=== PATIENT | female | born 1945 | race Caucasian/White ===

== ENCOUNTER 2024-04-20 11:43 | Outpatient (AMB) | payer MEDICARE, OTHER, SELFPAY ==
--- NOTE | 2024-04-20 11:41 | HO.NEPHOV_ITS ---
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 She has no H/O liver failure, renal failure nor documented cardiomyopathy/ CHF though she has a remote H/O questionable CAD in the anteroseptal territory.. Records did not say she has any coronary findings in the angiogram. She is followed up by Dr Morse. She is due to get an ECHO soon. She has been having edema with SOBE but denies any PND or orthopnea. She is not strict with low sodium diet and her weight has been fluctuant. She has been having edema in the lower extremities, left more than right even when she wakes up in the morning. She was given thiazide diuretics for some time which has been discontinued in the context of ongoing low sodium. She denies any weakness or mentation changes. She also was on Amlodipine which has been dicontinued due to ongoing edema. She has no H/O any proteinuria. She has no H/O depression and is not on any anti depressant medications. She has seen [employer] for SOB and has been given a new inhaler( as per the patient). She used to drink excessive amount of fluid and has cut back, She consumes a normal sodium diet . She has remote H/O melanoma couple of years ago but denies any active malignancies. She takes multiple anti hypertensive medications and clonidine is causing her dry mouth forcing her to drink more liquid. Her BP has been well controlled. [facility], [facility] Medical History (Updated 04/20/24 @ 23:19 by David Ziegler MD) History of melanoma Anteroseptal myocardial infarction Left bundle branch block Osteoarthritis Hyperlipidemia Hypertension Hyponatremia Surgical History (Updated 04/20/24 @ 11:50 by Flores Choudhury MA) History of cataract surgery Hx of appendectomy Family History (Updated 04/20/24 @ 11:51 by Flores Choudhury MA) Father Heart disease Sister Heart disease Brother Heart disease Social History (Updated 04/20/24 @ 11:52 by Flores Choudhury MA) Alcohol intake: current Patient Tobacco Use Status: Former Tobacco user Review of Systems Const All systems reviewed & are unremarkable except as noted in HPI and below Physical Exam Vital Signs: Last Vital Signs Pulse 63 04/20/24 11:45 BP 144/68 H 04/20/24 11:45 Pulse Ox 97 04/20/24 11:45 Oxygen Delivery Method Room Air 04/20/24 11:45 BMI result Body Mass Index 26.9 Const General: comfortable and no acute distress Orientation/consciousness: patient oriented x3 HEENT Head: Yes normocephalic Mouth: Normal oral and palatal mucosa present Eyes EOM: EOMs intact bilaterally Neck Neck: Yes supple Resp Auscultation: clear to auscultation bilaterally Cardio Jugular venous distension: JVD Rate: regular rate GI Palpation (GI): Soft to palpation Auscultation: normal bowel sounds General: Yes no CVA tenderness Back/Spine/Pelvis Back: no CVA tenderness Skin General skin exam: no rashes or lesions noted Neuro General: patient oriented x3 and moves all extremities Extrem Other: Edema L > R Results Reviewed Nephrology Results: No Data to Display Assessment & Plan Assessment & Plan (1) Hyponatremia: Code(s): E87.1 - Hypo-osmolality and hyponatremia Category: Medical (2) Hypertension: Code(s): I10 - Essential (primary) hypertension Category: Medical Qualifiers: Hypertension type: primary hypertension Qualified Code(s): I10 - Essential (primary) hypertension Plan Hyponatremia likely mutlifactorial. Clearly hypervolemic by clinical examination. Was on thiazide as well as amlodipine. H/O CAD/melanoma. May be having cardiomyopathy given subjective weight fluctuation as well as SOB with edema and JVD. Detailed work up ordered. ECHO pending. Started diuretics as well as nitrates. Will do a CXR as well as CT brain later, if needed. Shall try to wean her off Clondine given side effects. Time spent retreiving all data, patient encounter, documentation 63mts. Follow up given in a week. Answered all questions Orders: Orders TSH reflex Free T4 Today E87.1 - Hypo-osmolality and hyponatremia Blood Urea Nitrogen Today E87.1 - Hypo-osmolality and hyponatremia Cortisol Random Today E87.1 - Hypo-osmolality and hyponatremia Osmolality Urine Today E87.1 - Hypo-osmolality and hyponatremia Osmolality, Serum Today E87.1 - Hypo-osmolality and hyponatremia Sodium Urine Random Today E87.1 - Hypo-osmolality and hyponatremia Creatinine Today E87.1 - Hypo-osmolality and hyponatremia Electrolytes Today E87.1 - Hypo-osmolality and hyponatremia Medications: New furosemide 40 mg PO DAILY 14 tabs 0RF isosorbide mononitrate ER 30 mg PO DAILY 30 tabs 2RF Coding Level of Care Code New Pt Level 5 (27075) Diagnoses Hyponatremia E87.1 Primary hypertension I10 Hypertension type: primary hypertension
[2024-04-20 11:45] VITALS: BP 144/68; PULSE 63; O2SAT 97; BMI 26.9
== END 2024-04-20 12:31 | disposition home or self-care (01) ==
PROVIDERS: PCP Internal Medicine; Referring Provider Internal Medicine; Visit Provider Internal Medicine Nephrology
DX: E87.1 Hypo-osmolality and hyponatremia (principal); I10 Essential (primary) hypertension
CPT/HCPCS: 99205

== ENCOUNTER → 2024-04-20 11:43 | Outpatient (BNVA) | payer MEDICARE, OTHER, SELFPAY | PROVIDERS: PCP Internal Medicine; Referring Provider Internal Medicine; Visit Provider Internal Medicine Nephrology | DX: E87.1 Hypo-osmolality and hyponatremia (principal); I10 Essential (primary) hypertension; Z79.899 Other long term (current) drug therapy | CPT/HCPCS: 99202 ==

== ENCOUNTER 2024-04-29 09:30 | Outpatient (REF) | payer MEDICARE, OTHER, SELFPAY ==
[2024-04-29 18:04] LABS: Anion Gap 12 (12-20); Blood Urea Nitrogen 18 mg/dL (9-16); Carbon Dioxide 27 mmol/L (22-29); Chloride 98 mmol/L (96-108); Estimated Glomerular Filt Rate > 60; Potassium 3.9 mmol/L (3.3-5.1); Sodium 133 mmol/L (135-145)
[2024-04-29 18:11] LABS: Osmolality, Serum 279 mosm/kg (281-305)
[2024-04-29 18:11] LABS: Osmolality Urine 141 mosm/kg (373-1093)
[2024-04-29 18:20] LABS: Cortisol Random 2.7 ug/dL
[2024-04-29 18:21] LABS: TSH reflex Free T4 0.41 uIU/mL (0.32-4.0)
== END 2024-04-29 09:31 | disposition home or self-care (01) ==
LOC: HO.HKASLDS 09:30
PROVIDERS: Visit Provider Internal Medicine Nephrology
DX: E87.1 Hypo-osmolality and hyponatremia (principal)
CPT/HCPCS: 36415; 80051; 82533; 82565; 83930; 83935; 84300; 84443; 84520

== ENCOUNTER 2024-04-30 09:50 | Outpatient (AMB) | payer MEDICARE, OTHER, SELFPAY ==
[2024-04-30 09:55] VITALS: BP 128/60; PULSE 59; O2SAT 98; BMI 26.0
--- NOTE | 2024-04-30 09:55 | HO.NEPHOV ---
Vital Signs 04/30/24 09:55 Height 5 ft 4 in Weight 151 lb 6 oz BMI 26.0 BP 128/60 Blood Pressure Location Lt brachial Position Sitting Pulse 59 Pulse Source Pulse Oximeter Pulse Oximetry (%) 98 Oxygen Delivery Method Room Air Intake Visit Reasons: 1 wk follow up/ LVM Food Runner Required: No Accompanied by: Self / Same As Patient Allergies azithromycin Allergy (Verified 04/30/24 09:57) Hives HPI Comments Details: I had the privilege of seeing Fatoumata in follow up for hyponatremia. 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 She has no H/O liver failure, renal failure nor documented cardiomyopathy/ CHF though she has a remote H/O questionable CAD in the anteroseptal territory.. Records did not say she has any coronary findings in the angiogram. She is followed up by Dr Morse. She is due to get an ECHO soon. She has been having edema with SOBE but denies any PND or orthopnea. She is not strict with low sodium diet and her weight has been fluctuant. She has been having edema in the lower extremities, left more than right even when she wakes up in the morning. She was given thiazide diuretics for some time which has been discontinued in the context of ongoing low sodium. She denies any weakness or mentation changes. She also was on Amlodipine which has been dicontinued due to ongoing edema. She has no H/O any proteinuria. She has no H/O depression and is not on any anti depressant medications. She has seen Asset Protection Specialist for SOB and has been given a new inhaler( as per the patient). She used to drink excessive amount of fluid and has cut back, She consumes a normal sodium diet . She has remote H/O melanoma couple of years ago but denies any active malignancies. She takes multiple anti hypertensive medications and clonidine is causing her dry mouth forcing her to drink more liquid. Her BP has been well controlled. She had ECHO and is seeing Dr Morse this coming Saturday. Her SOB is better and sodium is better as well. [facility] Medical History (Updated 04/20/24 @ 23:19 by David Ziegler MD) History of melanoma Anteroseptal myocardial infarction Left bundle branch block Osteoarthritis Hyperlipidemia Hypertension Hyponatremia Surgical History History of cataract surgery Hx of appendectomy Family History Father Heart disease Sister Heart disease Brother Heart disease Social History Alcohol intake: current Patient Tobacco Use Status: Former Tobacco user Review of Systems Const All systems reviewed & are unremarkable except as noted in HPI and below Physical Exam Vital Signs: Last Vital Signs Pulse 59 04/30/24 09:55 BP 128/60 04/30/24 09:55 Pulse Ox 98 04/30/24 09:55 Oxygen Delivery Method Room Air 04/30/24 09:55 BMI result Body Mass Index 26.0 Const General: comfortable and no acute distress Orientation/consciousness: patient oriented x3 HEENT Head: Yes normocephalic Mouth: Normal oral and palatal mucosa present Eyes EOM: EOMs intact bilaterally Neck Neck: Yes supple Resp Auscultation: clear to auscultation bilaterally Cardio Jugular venous distension: no JVD Rate: regular rate GI Palpation (GI): Soft to palpation Auscultation: normal bowel sounds General: Yes no CVA tenderness Back/Spine/Pelvis Back: no CVA tenderness Skin General skin exam: no rashes or lesions noted Neuro General: patient oriented x3 and moves all extremities Results Reviewed Nephrology Results: Sodium 133 mmol/L (135-145) L 04/29/24 Potassium 3.9 mmol/L (3.3-5.1) 04/29/24 Chloride 98 mmol/L (96-108) 04/29/24 Carbon Dioxide 27 mmol/L (22-29) 04/29/24 BUN 18 mg/dL (9-16) H 04/29/24 Creatinine 0.84 mg/dL (0.5-1.4) 04/29/24 Assessment & Plan Assessment & Plan (1) Hypertension: Code(s): I10 - Essential (primary) hypertension Category: Medical Qualifiers: Hypertension type: primary hypertension Qualified Code(s): I10 - Essential (primary) hypertension (2) Hyponatremia: Code(s): E87.1 - Hypo-osmolality and hyponatremia Category: Medical Plan Hyponatremia likely mutlifactorial. Clearly hypervolemic by clinical examination at the last visit . Her volume status has improved. Was on thiazide as well as amlodipine. H/O CAD/melanoma. (May be having cardiomyopathy given subjective weight fluctuation as well as SOB with edema and JVD)- Had ECHO. Cards appointment next week. C/W diuretics as well as nitrates- Na better on it. Shall try to wean her off Clondine given side effects. Follow up given . Answered all questions Orders: Orders Blood Urea Nitrogen 1 Month E87.1 - Hypo-osmolality and hyponatremia, I10 - Essential (primary) hypertension Creatinine 1 Month E87.1 - Hypo-osmolality and hyponatremia, I10 - Essential (primary) hypertension Electrolytes 1 Month E87.1 - Hypo-osmolality and hyponatremia, I10 - Essential (primary) hypertension Medications: Refilled furosemide 40 mg PO DAILY 30 tabs 3RF Coding Level of Care Code Est Pt Level 4 (31348) Diagnoses Primary hypertension I10 Hypertension type: primary hypertension Hyponatremia E87.1
== END 2024-04-30 10:48 | disposition home or self-care (01) ==
PROVIDERS: PCP Internal Medicine; Visit Provider Internal Medicine Nephrology
DX: I10 Essential (primary) hypertension (principal); E87.1 Hypo-osmolality and hyponatremia
CPT/HCPCS: 99214

== ENCOUNTER → 2024-04-30 09:50 | Outpatient (BNVA) | payer MEDICARE, OTHER, SELFPAY | PROVIDERS: PCP Internal Medicine; Visit Provider Internal Medicine Nephrology | DX: E87.1 Hypo-osmolality and hyponatremia (principal); I10 Essential (primary) hypertension | CPT/HCPCS: 99212 ==

== ENCOUNTER 2024-05-27 10:39 | Outpatient (REF) | payer MEDICARE, OTHER, SELFPAY ==
[2024-05-27 17:59] LABS: Anion Gap 7 (12-20); Blood Urea Nitrogen 13 mg/dL (9-16); Carbon Dioxide 32 mmol/L (22-29); Chloride 104 mmol/L (96-108); Estimated Glomerular Filt Rate 59; Potassium 3.9 mmol/L (3.3-5.1); Sodium 139 mmol/L (135-145)
== END 2024-05-27 10:40 | disposition home or self-care (01) ==
LOC: HO.HKASLDS 10:39
PROVIDERS: Visit Provider Internal Medicine Nephrology
DX: I10 Essential (primary) hypertension (principal); E87.1 Hypo-osmolality and hyponatremia
CPT/HCPCS: 36415; 80051; 82565; 84520

== ENCOUNTER 2024-05-28 15:14 | Outpatient (AMB) | payer MEDICARE, OTHER, SELFPAY ==
[2024-05-28 15:45] VITALS: BP 118/64; PULSE 60; O2SAT 96; BMI 26.0
--- NOTE | 2024-05-28 15:45 | HO.NEPHOV_ITS ---
Vital Signs 05/28/24 15:45 Height 5 ft 4 in Weight 151 lb 8 oz BMI 26.0 BP 118/64 Blood Pressure Location Lt brachial Position Sitting Pulse 60 Pulse Source Pulse Oximeter Pulse Oximetry (%) 96 Oxygen Delivery Method Room Air Intake Visit Reasons: 1 mon follow up- CON Manager Statistical Programming Required: No Accompanied by: Self / Same As Patient Allergies azithromycin Allergy (Verified 05/28/24 15:47) Hives HPI Comments Details: I had the privilege of seeing Fatoumata in follow up for hyponatremia. 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 She has no H/O liver failure, renal failure nor documented cardiomyopathy/ CHF though she has a remote H/O questionable CAD in the anteroseptal territory.. Records did not say she has any coronary findings in the angiogram. She is followed up by Dr Morse. She is due to get an ECHO soon. She has been having edema with SOBE but denies any PND or orthopnea. She is not strict with low sodium diet and her weight has been fluctuant. She has been having edema in the lower extremities, left more than right even when she wakes up in the morning. She was given thiazide diuretics for some time which has been discontinued in the context of ongoing low sodium. She denies any weakness or mentation changes. She also was on Amlodipine which has been dicontinued due to ongoing edema. She has no H/O any proteinuria. She has no H/O depression and is not on any anti depressant medications. She has seen Load Dispatcher Local for SOB and has been given a new inhaler( as per the patient). She used to drink excessive amount of fluid and has cut back, She consumes a normal sodium diet . She has remote H/O melanoma couple of years ago but denies any active malignancies. She takes multiple anti hypertensive medications and clonidine is causing her dry mouth forcing her to drink more liquid. Her BP has been well controlled. She had ECHO and is seeing Dr Morse this coming Saturday. Her SOB is better and sodium is better as well. [facility] Medical History (Updated 04/20/24 @ 23:19 by David Ziegler MD) History of melanoma Anteroseptal myocardial infarction Left bundle branch block Osteoarthritis Hyperlipidemia Hypertension Hyponatremia Surgical History History of cataract surgery Hx of appendectomy Family History Father Heart disease Sister Heart disease Brother Heart disease Social History Alcohol intake: current Patient Tobacco Use Status: Former Tobacco user Review of Systems Const All systems reviewed & are unremarkable except as noted in HPI and below Physical Exam Vital Signs: Last Vital Signs Pulse 60 05/28/24 15:45 BP 118/64 05/28/24 15:45 Pulse Ox 96 05/28/24 15:45 Oxygen Delivery Method Room Air 05/28/24 15:45 BMI result Body Mass Index 26.0 Const General: comfortable and no acute distress Orientation/consciousness: patient oriented x3 HEENT Head: Yes normocephalic Mouth: Normal oral and palatal mucosa present Eyes EOM: EOMs intact bilaterally Neck Neck: Yes supple Resp Auscultation: clear to auscultation bilaterally Cardio Jugular venous distension: no JVD Rate: regular rate GI Palpation (GI): Soft to palpation Auscultation: normal bowel sounds General: Yes no CVA tenderness Back/Spine/Pelvis Back: no CVA tenderness Skin General skin exam: no rashes or lesions noted Neuro General: patient oriented x3 and moves all extremities Extrem General: Yes no pedal edema Results Reviewed Nephrology Results: Sodium 139 mmol/L (135-145) 05/27/24 Potassium 3.9 mmol/L (3.3-5.1) 05/27/24 Chloride 104 mmol/L (96-108) 05/27/24 Carbon Dioxide 32 mmol/L (22-29) H 05/27/24 BUN 13 mg/dL (9-16) 05/27/24 Creatinine 0.92 mg/dL (0.5-1.4) 05/27/24 Assessment & Plan Assessment & Plan (1) Hyponatremia: Code(s): E87.1 - Hypo-osmolality and hyponatremia Category: Medical (2) Hypertension: Code(s): I10 - Essential (primary) hypertension Category: Medical Qualifiers: Hypertension type: primary hypertension Qualified Code(s): I10 - Essential (primary) hypertension Plan Hyponatremia likely mutlifactorial. Was hypervolemic by clinical examination at the last visits but euvolemic now . H/O CAD/melanoma. (May be having cardiomyopathy given subjective weight fluctuation as well as SOB with edema and JVD)- Had ECHO- OK. Will benefit from Sleep Study. C/W diuretics as well as nitrates. Shall try to wean her off Clondine given side effects. No changes made today. Follow up given . Answered all questions Orders: Orders Electrolytes Today E87.1 - Hypo-osmolality and hyponatremia, I10 - Essential (primary) hypertension Creatinine Today E87.1 - Hypo-osmolality and hyponatremia, I10 - Essential (primary) hypertension Blood Urea Nitrogen Today E87.1 - Hypo-osmolality and hyponatremia, I10 - Essential (primary) hypertension Coding Level of Care Code Est Pt Level 4 (19096) Diagnoses Hyponatremia E87.1 Primary hypertension I10 Hypertension type: primary hypertension
== END 2024-05-28 16:12 | disposition home or self-care (01) ==
PROVIDERS: PCP Internal Medicine; Visit Provider Internal Medicine Nephrology
DX: E87.1 Hypo-osmolality and hyponatremia (principal); I10 Essential (primary) hypertension
CPT/HCPCS: 99214

== ENCOUNTER → 2024-05-28 15:14 | Outpatient (BNVA) | payer MEDICARE, OTHER, SELFPAY | PROVIDERS: PCP Internal Medicine; Visit Provider Internal Medicine Nephrology | DX: E87.1 Hypo-osmolality and hyponatremia (principal); I10 Essential (primary) hypertension | CPT/HCPCS: 99212 ==

== ENCOUNTER 2024-11-25 10:00 | Outpatient (REF) | payer MEDICARE, OTHER, SELFPAY ==
--- OUTSIDE RECORDS SUMMARY | 2024-11-25 11:22 | XMS_ITS | Encounter Summary ---
Author Organization [facility] Address [address] [place] [address] Care Team Providers Care Obstetrician/Gynecologist Name Role Phone Gilmar Freeman MD Primary Care Provider + [phone] Reason for Referral * Therapy (Routine) - Closed Specialty Diagnoses / Procedures Referred By Contac t Referred To Contact Pulmonology Diagnoses COPD (chronic obstructive pulmonary disease) ([facility]) Procedures Pulmonary function testing: Carbon Monoxide Diffusing Capacity, Nitrogen Wash Out, Spirometry with Bronchodilator Elis Forbes MD [address] [place] [id number] Phone: tel: fax: [facility] [address] [place] [address] Phone: tel: Referral ID Status Reason Start Date Expiration Date Visits Re quested Visits Authorized [id number] Closed 10/22/2024 10/22/2025 1 1 Reason for Visit * Therapy (Routine) - Closed Specialty Diagnoses / Procedures Referred By Contac t Referred To Contact Pulmonology Diagnoses COPD (chronic obstructive pulmonary disease) ([facility]) Procedures Pulmonary function testing: Carbon Monoxide Diffusing Capacity, Nitrogen Wash Out, Spirometry with Bronchodilator Elis Forbes MD [address] [place] [address] Phone: tel: fax: [facility] [address] [place] [address] Phone: tel: Referral ID Status Reason Start Date Expiration Date Visits Re quested Visits Authorized [id number] Closed 10/22/2024 10/22/2025 1 1 Encounter Details Date Type Department Care Team (Latest Contact Info) Description 11/11/2024 8:07 AM EST - 11/11/2024 11:59 PM EST Hospital Encounter [facility] [address] [place] [address] COPD (chronic obstructive pulmonary disease) ([facility]) Discharge Disposition: Home or Self Care Social History Tobacco Use Types Packs/Day Years Used Date Smoking Tobacco: Former Cigarettes Smokeless Tobacco: Never Alcohol Use Standard Drinks/Week Comments Yes 0 (1 standard drink = 0.6 oz pur e alcohol) Comments Unknown Sex and Gender Information Value Date Recorded Sex Assigned at Female 11/05/2024 5:18 PM EST Legal Sex Female 12:09 AM EST Gender Identity Female 11/05/2024 5:18 PM EST Sexual Orientation Straight 11/05/2024 5: 18 PM EST documented as of this encounter Discharge Disposition Disposition Code Departure Means Destination Home or Self Care documented in this encounter Plan of Treatment Not on file documented as of this encounter Procedures Procedure Name Priority Date/Time Associated Diagnosis Comments HC SPIROMETRY BRONCHODILATION RESPONSIVENESS PRE/POST BRONCHODILATOR ADMINISTRATION Routine 11/11/2024 8:58 AM EST COPD (chronic obstructive pulmonary disease) ([facility]) documented in this encounter Results * Pulmonary function testing: Carbon Monoxide Diffusing Capacity, Nitrogen Wash Out, Spirometry with Bronchodilator (11/11/2024 8:58 AM EST) Narrative Braden Guerrero MD - 11/12/2024 3:49 PM EST DATE OF SERVICE: 11/11/24 SPIROMETRY: FEV1 is 104 % predicted and an FVC ??is 97 % predicted. The FEV1/FVC ratio is normal, no response to bronchodilators noted. LUNG VOLUMES: Total lung capacity (TLC): 92% predicted. Residual volume (RV): 89% predicted DIFFUSION CAPACITY: DLCO 79% predicted. DlCO/VA 109% of predicted COMPARISONS: INTERPRETATION: This pulmonary function test shows normal spirometry and DLCO/VA ratio. ?? There is no evidence of significant lung disease based on this PFT ??Braden Guerrero MD ?? us Elis Forbes MD PFT ORDERABLES Final Result documented in this encounter Visit Diagnoses Diagnosis COPD (chronic obstructive pulmonary disease) ([facility]) Chronic airway obstruction, not elsewhere classified documented in this encounter Administered Medications Inactive Administered Medications - up to 3 most recent administrations Medication Order MAR Action Action Date Dose Rate Site albuterol 2.5 mg /3 mL (0.083 %) nebulizer solution 2.5 mg 2.5 mg, nebulization, Once, On Sat11/11/24 at 0830, For 1 dose Given 11/11/2024 8:45 AM EST 2.5 mg documented in this encounter Orders Medications Ordered That Nima ht Not Have Been Administered Count Last Ordered Date First Ordered Date albuterol 2.5 mg /3 mL (0.08 3 %) nebulizer solution 2.5 mg 1 11/11/2024 documented in this encounter Care Teams Obstetrician/Gynecologist Relationship Specialty Start Date End Date Gilmar Freeman MD [address] [place] [address] PCP - General Internal Medicine 01/23/12 documented as of this encounter
--- OUTSIDE RECORDS SUMMARY | 2024-11-25 11:23 | XMS_ITS | Clinical Summary ---
Author Organization [facility] Address [address] [place] [address] Phone Care Team Providers Care Credit Department Manager Name Role Phone Steven Smith MD Primary Care Provider [phone] Allergies No known active allergies Encounters Date Type Department Care Team Description 11/11/2024 8:07 AM EST - 11/11/2024 11:59 PM EST Hospital Encounter [facility] Pulmonary [address] [place] [address] COPD (chronic obstructive pulmonary disease) ([facility]) Discharge Disposition: Home or Self Care from Last 3 Months Social History Tobacco Use Types Packs/Day Years [...] Orientation Straight 11/05/2024 5: 18 PM EST Obstetrics History Last Filed Vital Signs Vital Sign Reading Time Taken Comments Blood Pressure 118/65 05/05/2024 10:50 AM EDT Si tting L Arm Pulse 65 05/05/2024 10:50 AM EDT Temperature - - Respiratory Rate - - Oxygen Saturation - - Inhaled Oxygen Concentration - - Weight 68.5 kg (151 lb) 05/05/2024 10:50 AM EDT Height 162.6 cm (5' 4 ) 05/05/2024 10:50 AM EDT Body Mass Index 25.92 05/05/2024 10:50 AM EDT Plan of Treatment Health Maintenance Due Date Last Done Comments DTaP,Tdap,and Td Vaccines (1 - Tdap) 1964 Zoster Vaccines (3 of 3) 10/13/2018 08/18/2018, 04/17 Cholesterol Screening (Lipid Panel) 08/19/2022 Depression Screening 08/19/2022 Falls Risk Assessment 08/19/2022 Hepatitis C Screening 08/19/2022 Medicare Annual Wellness Visit 08/19/2022 Social Influencers of Health Screening 08/19/2022 Hypertension/CHF/CAD Annual BMP Blood Test 08/26/2022 Osteoporosis Screening (Bone Density Screening) 10/03/2033 10/03/2023, 12/10/2018 Pneumococcal Vaccine: 50+ Years Completed 02/05/2019, 09/11/2016 Influenza Vaccine Completed 05/03/2024, , 07/04/2022, Additional history exists COVID-19 Vaccine Completed 07/10/2024, , 07/04/2022, Additional history exists RSV Immunization Patients 60+ Years Old Completed 07/10/2024, 10/09/2023 HIB Vaccines Aged Out No longer eligi ble based on patient's age to complete this topic HPV Vaccines Aged Out No longer eligi ble based on patient's age to complete this topic Hepatitis A Vaccines Aged Out No long er eligible based on patient's age to complete this topic Hepatitis B Vaccines Aged Out No long er eligible based on patient's age to complete this topic IPV Vaccines Aged Out No longer eligi ble based on patient's age to complete this topic MMR Vaccines Aged Out No longer eligi ble based on patient's age to complete this topic Meningococcal ACWY Vaccine Aged Out N o longer eligible based on patient's age to complete this topic Meningococcal B Vacine Aged Out No lo nger eligible based on patient's age to complete this topic RSV Immunization Patients Under 20 months Aged Out No longer eligible based on patient's age to complete this topic Varicella Vaccines Aged Out No longer eligible based on patient's age to complete this topic Procedures Procedure Name Priority Date/Time Associated Diagnosis Comments HC SPIROMETRY BRONCHODILATION RESPONSIVENESS PRE/POST BRONCHODILATOR ADMINISTRATION Routine 11/11/2024 8:58 AM EST COPD (chronic obstructive pulmonary disease) ([facility]) [facility] DEXA AXIAL SKELETON Routine 10/03/19 8:00 AM EST Other specified disorders of bone density and structure, multiple sites from Last 3 Months or Most Recently Relevant to Health Maintenance Results * Pulmonary function testing: Carbon Monoxide [...] Elis Forbes MD PFT ORDERABLES Final Result * [facility] DEXA AXIAL SKELETON (10/03/2023 8:00 AM EST) Anatomical Region Laterality Modality Mammography 10/02/2023 12:5 4 PM EST Narrative 10/03/2023 8:00 AM EST [facility] Diagnostic Imaging Department [address] [place] [address] Patient: ??FATOUMATA RAJPUT ?/Age/Sex: 1945 - 77 - F Unit#: ??[id number] ? Location/Status: ??SPDIMAM/REG CLI ? Mnemonic/Ordering Site: ??MAMDEXAAX/SPMAM Ordering Physician: ??STEVEN SMITH MD [facility] Dexa Axial Skeleton - 10/02/23 - 7 Report Status:Signed HISTORY: ??The patient is a 77-year-old postmenopausal female with clinical concern for metabolic bone disease. FINDINGS: ??Dual energy x-ray absorptiometry of the lumbar spine and femurs is performed. The mean bone mineral density at L1-2 is 0.983 gm/cm2 which is 84% of that of young normals and 100% of that of age matched controls. This yields a T- score of -1.5 and a Z-score of 0.0 which is diagnostic of osteopenia. The mean bone mineral density of the femurs bilaterally is 0.841 gm/cm2 which is 83% of that of young normals and 105% of that of age matched controls. ??This yields a T-score of -1.3 and a Z-score of 0.3 which is diagnostic of osteopenia. The T-score of the right femoral neck is -1.4 and that of the left femoral neck is -1.5 which is diagnostic of osteopenia. IMPRESSION: 1. Osteopenia. ??There has been an increase of 4.6% in bone mineral density in the lumbar spine since the prior examination of 12/09/2018. ??There has been a decrease of 6.0% in bone mineral density in the right femur and a decrease of 3.6% in bone mineral density in the left femur. 2. FRAX analysis yields a 10-year probability of major osteoporotic fracture of 11.7% and a 10-year probability of hip fracture of 2.4%. Code 31617 Dictating Physician: ??PHILIP HAMILTON MD Electronically Signed by: ??PHILIP HAMILTON MD Dic Date/Time: ??10/03/23 0759 Sign date/Time: ??10/03/23 0800 Procedure Note Philip Hamilton MD - 05/04/2024 [facility] Diagnostic Imaging Department [address] [place] [id number] Patient: DERIKFATOUMATANata Montenegro./Age/Sex: 1945 - 77 - F Unit#: [id number] Location/Status: [facility] CLI Mnemonic/Ordering Site: [facility] Ordering Physician: STEVEN SMITH MD [facility] Dexa Axial Skeleton - 10/02/23 - 1317 Report Status:Signed HISTORY: The patient is a 77-year-old postmenopausal female withclinical concern for metabolic bone disease. FINDINGS: Dual energy x-ray absorptiometry of the lumbar spine and femursis performed. The mean bone mineral density at L1-2 is 0.983 gm/cm2 which is84% of that of young normals and 100% of that of age matched controls. Thisyields a T- score of -1.5 and a Z-score of 0.0 which is diagnostic of osteopenia. The mean bone mineral density of the femurs bilaterally is 0.841 gm/wu5amvvq is 83% of that of young normals and 105% of that of age matched controls.This yields a T-score of -1.3 and a Z-score of 0.3 which is diagnostic ofosteopenia. The T-score of the right femoral neck is -1.4 and that of the left femoralneck is -1.5 which is diagnostic of osteopenia. IMPRESSION: 1. Osteopenia. There has been an increase of 4.6% in bone mineral densityin the lumbar spine since the prior examination of 12/09/2018. There has trung decrease of 6.0% in bone mineral density in the right femur and a decreaseof 3.6% in bone mineral density in the left femur. 2. FRAX analysis yields a 10-year probability of major osteoporoticfracture of 11.7% and a 10-year probability of hip fracture of 2.4%. Code 49139 Dictating Physician: PHILIP HAMILTON MD Electronically Signed by: PHILIP HAMILTON MD Dic Date/Time: 10/03/23 0759 Sign date/Time: 10/03/23 0800 Steven Smith MD IM BI PROCEDURES Final Resu lt from Last 3 Months or Most Recently Relevant to Health Maintenance Insurance MEDICARE [employer] Care Teams Credit Department Manager Relationship Specialty Start Date End Date Steven Smith MD [address] [place] [address] PCP - General Internal Medicine 01/23/12
[2024-11-25 18:38] LABS: Anion Gap 11 (12-20); Blood Urea Nitrogen 16 mg/dL (9-16); Carbon Dioxide 25 mmol/L (22-29); Chloride 104 mmol/L (96-108); Estimated Glomerular Filt Rate > 60; Sodium 136 mmol/L (135-145)
== END 2024-11-25 10:01 | disposition home or self-care (01) ==
LOC: HO.HKASLDS 10:00
PROVIDERS: Visit Provider Internal Medicine Nephrology
DX: E87.1 Hypo-osmolality and hyponatremia (principal); I10 Essential (primary) hypertension
CPT/HCPCS: 36415; 80051; 82565; 84520

== ENCOUNTER 2024-11-26 09:43 | Outpatient (AMB) | payer OTHER, MEDICARE, SELFPAY ==
--- NOTE | 2024-11-26 09:50 | HO.NEPHOV_ITS ---
Vital Signs 11/26/24 09:52 Height 5 ft 4 in Weight 152 lb 4 oz BMI 26.1 BP 130/70 Blood Pressure Location Lt brachial Position Sitting Pulse 67 Pulse Source Pulse Oximeter Pulse Oximetry (%) 96 Oxygen Delivery Method Room Air Intake Visit Reasons: 6 mon follow up-Conf Collar Padder Blindstitch Required: No Accompanied by: Self / Same As Patient Allergies azithromycin Allergy (Verified 11/26/24 09:52) Hives HPI Comments Details: Fatoumata in follow up for hypertension as well as H/O hyponatremia. She has no H/O liver failure, renal failure nor documented cardiomyopathy/ CHF though she has a remote H/O questionable CAD in the anteroseptal territory.. Records did not say she has any coronary findings in the angiogram. She is followed up by Dr Morse. She is due to get an ECHO soon. She has been having edema with SOBE but denies any PND or orthopnea. She is not strict with low sodium diet and her weight has been fluctuant. She denies any weakness or mentation changes. She has no H/O any proteinuria. She has no H/O depression and is not on any anti depressant medications. She has seen Junior Project Manager for SOB and has a new inhaler( as per the patient). She used to drink excessive amount of fluid and has cut back, She consumes a normal sodium diet . She has remote H/O melanoma couple of years ago but denies any active malignancies. She takes multiple anti hypertensive medications and clonidine is causing her dry mouth forcing her to drink more liquid. Her BP has been well controlled. [facility] Medical History (Updated 04/20/24 @ 23:19 by David Ziegler MD) History of melanoma Anteroseptal myocardial infarction Left bundle branch block Osteoarthritis Hyperlipidemia Hypertension Hyponatremia Surgical History History of cataract surgery Hx of appendectomy Family History Father Heart disease Sister Heart disease Brother Heart disease Social History Alcohol intake: current Patient Tobacco Use Status: Former Tobacco user Review of Systems Const All systems reviewed & are unremarkable except as noted in HPI and below Physical Exam Vital Signs: Last Vital Signs Pulse 67 11/26/24 09:52 BP 130/70 11/26/24 09:52 Pulse Ox 96 11/26/24 09:52 Oxygen Delivery Method Room Air 11/26/24 09:52 BMI result Body Mass Index 26.1 Const General: comfortable and no acute distress Orientation/consciousness: patient oriented x3 HEENT Head: Yes normocephalic Mouth: Normal oral and palatal mucosa present Eyes EOM: EOMs intact bilaterally Neck Neck: Yes supple Resp Auscultation: clear to auscultation bilaterally Cardio Jugular venous distension: no JVD Rate: regular rate GI Palpation (GI): Soft to palpation Auscultation: normal bowel sounds Skin General skin exam: no rashes or lesions noted Neuro General: patient oriented x3 and moves all extremities Extrem General: Yes no pedal edema Results Reviewed Nephrology Results: Sodium 136 mmol/L (135-145) 11/25/24 Potassium 4.0 mmol/L (3.3-5.1) 11/25/24 Chloride 104 mmol/L (96-108) 11/25/24 Carbon Dioxide 25 mmol/L (22-29) 11/25/24 BUN 16 mg/dL (9-16) 11/25/24 Creatinine 0.78 mg/dL (0.5-1.4) 11/25/24 Assessment & Plan Assessment & Plan (1) Hypertension: Code(s): I10 - Essential (primary) hypertension Category: Medical Qualifiers: Hypertension type: primary hypertension Qualified Code(s): I10 - Essential (primary) hypertension (2) Hyponatremia: Code(s): E87.1 - Hypo-osmolality and hyponatremia Category: Medical Plan Hyponatremia likely mutlifactorial. Was hypervolemic by clinical examination in the past but euvolemic now . H/O CAD/melanoma. (May be having cardiomyopathy given subjective weight fluctuation as well as SOB with edema and JVD)- Had E CHO- OK. C/W diuretics as well as nitrates. No changes made today. Follow up given . Answered all questions Orders: Orders Electrolytes 1 Year E87.1 - Hypo-osmolality and hyponatremia, I10 - Essential (primary) hypertension Creatinine 1 Year E87.1 - Hypo-osmolality and hyponatremia, I10 - Essential (primary) hypertension Blood Urea Nitrogen 1 Year E87.1 - Hypo-osmolality and hyponatremia, I10 - Essential (primary) hypertension Coding Level of Care Code Est Pt Level 4 (25398) Diagnoses Primary hypertension I10 Hypertension type: primary hypertension Hyponatremia E87.1
[2024-11-26 09:52] VITALS: BP 130/70; PULSE 67; O2SAT 96; BMI 26.1
--- OUTSIDE RECORDS SUMMARY | 2024-11-26 11:43 | XMS_ITS | Clinical Summary ---
Author Organization [facility] Address [address] [place] [address] Phone Care Team Providers Care Photographic Lithographer Name Role Phone Steven Smith MD Primary Care Provider Allergies No known active allergies Encounters Date Type Department Care Team Description 11/11/2024 8:07 AM EST - 11/11/2024 11:59 PM EST Hospital Encounter [facility] Pulmonary [address] [place] [address] COPD (chronic obstructive pulmonary disease) ([facility]) Discharge Disposition: Home or Self Care from [...] AM EST COPD (chronic obstructive pulmonary disease) ([facility]) [facility] DEXA AXIAL SKELETON Routine 10/03/19 [...] Forbes MD PFT ORDERABLES Final Result * [facility] DEXA AXIAL SKELETON (10/03/2023 8:00 AM EST) Anatomical Region Laterality Modality Mammography 10/02/2023 12:5 4 PM EST Narrative 10/03/2023 8:00 AM EST [facility] Diagnostic Imaging Department [address] [place] [address] Patient: ??FATOUMATA RAJPUT ?/Age/Sex: 1945 - 77 - F Unit#: ??[id number] ? Location/Status: ??SPDIMAM/REG CLI ? Mnemonic/Ordering Site: [...] probability of hip fracture of 2.4%. Code 59682 Dictating Physician: ??PHILIP HAMILTON MD Electronically Signed by: ??PHILIP AHMILTON MD Dic Date/Time: ??10/03/23 0759 Sign date/Time: ??10/03/23 0800 Procedure Note Philip Hamilton MD - 05/04/2024 [facility] Diagnostic Imaging Department [address] [place] [address] Patient: DERIKFATOUMATANata Montenegro./Age/Sex: 1945 - 77 - F Unit#: [id number] Location/Status: [facility] CLI Mnemonic/Ordering Site: [facility] Ordering Physician: STEVEN SMITH MD [facility] Dexa Axial Skeleton - 10/02/23 - 1317 [...] density of the femurs bilaterally is 0.841 gm/bq7qocrw is 83% of that of young normals [...] probability of hip fracture of 2.4%. Code 08735 Dictating Physician: PHILIP HAMILTON MD Electronically Signed by: PHILIP HAMILTON MD Dic Date/Time: 10/03/23 0759 Sign date/Time: 10/03/23 0800 Steven Smith MD IM BI PROCEDURES Final Resu lt from Last 3 Months or Most Recently Relevant to Health Maintenance Insurance MEDICARE [employer] Care Teams Photographic Lithographer Relationship Specialty Start Date End Date Steven Smith MD [address] [place] [address] PCP - General Internal Medicine 01/23/12
--- OUTSIDE RECORDS SUMMARY | 2024-11-26 11:43 | XMS_ITS | Encounter Summary ---
Author Organization [facility] Address [address] [place] [address] Care Team Providers Care Lace Tearing Supervisor Name Role Phone Gilmar Freeman MD Primary Care Provider [phone] Reason for Referral * Therapy (Routine) - Closed Specialty Diagnoses / Procedures Referred By Contac t Referred To Contact Pulmonology Diagnoses COPD (chronic obstructive pulmonary disease) ([facility] Procedures Pulmonary function testing: Carbon Monoxide Diffusing Capacity, Nitrogen Wash Out, Spirometry with Bronchodilator Elis Forbes MD [address] [place] [address] Phone: tel: fax: [facility] Pulmonary [address] [place] [address] Phone: tel: Referral ID Status Reason Start Date Expiration Date Visits Re quested Visits Authorized [id number] Closed 10/22/2024 10/22/2025 1 1 Reason for Visit * Therapy (Routine) - Closed Specialty Diagnoses / Procedures Referred By Contac t Referred To Contact Pulmonology Diagnoses COPD (chronic obstructive pulmonary disease) ([facility]) Procedures Pulmonary function testing: Carbon Monoxide Diffusing Capacity, Nitrogen Wash Out, Spirometry with Bronchodilator Elis Forbes MD [address] [place] [address] Phone: tel: fax: [facility] Pulmonary [address] [place] [address] Phone: tel: Referral ID Status Reason Start Date Expiration Date Visits Re quested Visits Authorized [id number] Closed 10/22/2024 10/22/2025 1 1 Encounter Details Date Type Department Care Team (Latest Contact Info) Description 11/11/2024 8:07 AM EST - 11/11/2024 11:59 PM EST Hospital Encounter [facility] Pulmonary [address] [place] [address] COPD (chronic obstructive pulmonary disease) ([facility]) Discharge Disposition: Home or Self Care Social [...] AM EST COPD (chronic obstructive pulmonary disease) ([facility]) documented in this encounter Results * Pulmonary [...] Diagnoses Diagnosis COPD (chronic obstructive pulmonary disease) ([facility]) Chronic airway obstruction, not elsewhere classified documented [...] 11/11/2024 documented in this encounter Care Teams Lace Tearing Supervisor Relationship Specialty Start Date End Date Gilmar Freeman MD [address] [place] [address] PCP - General Internal Medicine 01/23/12 documented as of this encounter
== END 2024-11-26 10:27 | disposition home or self-care (01) ==
LOC: HO.HKAS 09:44
PROVIDERS: PCP Internal Medicine; Visit Provider Internal Medicine Nephrology
DX: I10 Essential (primary) hypertension (principal); E87.1 Hypo-osmolality and hyponatremia
CPT/HCPCS: 99214